=== PATIENT | male | born 2000 | race Caucasian/White ===

== ENCOUNTER 2021-05-31 20:08 | Emergency (ER) | payer MEDICAID ==
[2021-05-31] MEDS ORDERED: Sodium Chloride 0.9% 1,000 ML IV SCH (20:45)
--- NOTE | 2021-05-31 20:54 | EDM.PDOC ---
ED HPI GENERAL MEDICAL PROBLEM - General Chief Complaint: Abdominal Pain Stated Complaint: ABDOMINAL PAIN Time Seen by Provider: 05/31/21 20:20 Source of Information: Reports: Patient, Family (Grandmother) History Limitations: Reports: No Limitations - History of Present Illness INITIAL COMMENTS - FREE TEXT/NARRATIVE: Reji is a very pleasant 20-year-old man who now presents the ED stating that he has had crampy left upper quadrant abdominal pain on and off for the past 2.5 weeks. The pain is absent if he remains still, but develops with activity, eating, or lying on his left side. He reports having slight nausea, and states that he vomited once, but he has not had any fever, chills, or urinary symptoms. He reports having alternating constipation versus soft bowel movements, but denies having watery diarrhea or bloody bowel movements. No prior similar symptoms. The patient states that he was seen by a local doctor about 1 week ago, who recommended that he take a stool softener and drink a fiber solution. The patient states he did that and that his symptoms have improved somewhat, but not resolved. He was then seen at the [facility] walk[facility] today, where a CBC, CMP, lipase level, urinalysis, and abdominal flatplate x-ray were performed. His blood work and urinalysis were unremarkable, while the x-ray demonstrated a nonspecific bowel gas pattern with air throughout the colon. He was then sent here to undergo a CT of the abdomen and pelvis. Here in the ED, the patient is found to be hemodynamically stable, afebrile, saturating 95% on room air. He appears to be comfortable, in no acute distress. Prior to 2.5 weeks ago, the patient denies having a recent fever, chills, sore throat, ear pain, nasal or sinus congestion, cough, dyspnea, chest pain, palpitations, nausea, vomiting, constipation, diarrhea, abdominal pain, urinary symptoms, recent weight gain or weight loss, recent bloody bowel movements or black bowel movements, recent joint aches, headaches, or rashes. The patient does not have a PCP. He resides in [place], [place]. He has not received a COVID vaccination. Upper Abdomen Pain Score (Numeric/FACES): 3 - Related Data Allergies Allergy/AdvReac Type Severity Reaction Status Date / Time No Known Allergies Allergy Verified 07/21/21 20:23 Home Meds: Home Meds . [No Known Home Meds] 05/31/21 [History] Past Medical History - Past Health History Medical/Surgical History: Denies Medical/Surgical History Social & Family History - Tobacco Use Tobacco Use Status *Q: Never Tobacco User Second Hand Smoke Exposure: No - Alcohol Use Alcohol Use History: No - Recreational Drug Use Recreational Drug Use: Yes Drug Use in Last 12 Months: Yes Recreational Drug Type: Reports: Marijuana/Hashish (smokes 3-4x/day) - Living Situation & Occupation Living situation: Reports: Single, with Family (Grandmother) Occupation: Employed ([employer]) ED ROS GENERAL - Review of Systems Review Of Systems: Comprehensive ROS is negative, except as noted in HPI. ED EXAM, GI/ABD - Physical Exam Exam: See Below Exam Limited By: No Limitations General Appearance: Alert, WD/WN, No Apparent Distress Eyes: Bilateral: Normal Appearance, EOMI Ears: Normal External Exam, Hearing Grossly Normal Nose: Normal Inspection Throat/Mouth: Normal Inspection, Normal Lips, Normal Voice, No Airway Compromise Head: Atraumatic, Normocephalic Neck: Normal Inspection, Full Range of Motion Respiratory/Chest: No Respiratory Distress, Lungs Clear, Normal Breath Sounds, No Accessory Muscle Use Cardiovascular: Normal Peripheral Pulses, Regular Rate, Rhythm, No Edema, No Gallop, No JVD, No Murmur, No Rub GI/Abdominal Exam: Normal Bowel Sounds, Soft, No Organomegaly, No Distention, No Abnormal Bruit, No Mass, Tender (Left upper quadrant only. Nontender elsewhere.) Back Exam: Normal Inspection, Full Range of Motion, NT Extremities: Normal Inspection, Normal Range of Motion, No Pedal Edema, Normal Capillary Refill Neurological: Alert, Oriented, Normal Cognition, No Motor/Sensory Deficits Psychiatric: Normal Affect Skin Exam: Warm, Dry, Intact, Normal Color, No Rash Course - Vital Signs Last Recorded V/S: Last Vital Signs Temp 36.2 C 05/31/21 20: Pulse 85 05/31/21 20:21 Resp 16 05/31/21 20:21 BP 139/74 05/31/21 20:21 Pulse Ox 95 05/31/21 20:21 - Orders/Labs/Meds Orders: Active Orders 24 hr Category Date Time Status Abdomen Pelvis w Cont [CT] Stat Exams 05/31/21 20:39 Taken Meds: Medications Discontinued Medications Generic Name Dose Route Start Last Admin Trade Name Alexa PRN Reason Stop Dose Admin Diatrizoate Meglum/Diatrizoate Sod 90 ml 05/31/21 21:46 05/31/21 22:05 Diatrizoate Meglumine/Diatrizoate Sodium 37% 120 Ml Bottle PO 05/31/21 21:47 90 ml ONETIME ONE Administration Sodium Chloride 1,000 mls @ 150 mls/hr 05/31/21 20:45 05/31/21 20:48 Normal Saline IV 150 mls/hr ASDIRECTED JUAN LUIS Administration Iopamidol 100 ml 05/31/21 21:46 05/31/21 22:04 Iopamidol 612 Mg/Ml 100 Ml Bottle IVPUSH 05/31/21 21:47 100 ml ONETIME ONE Administration - Re-Assessments/Exams Free Text/Narrative Re-Assessment/Exam: 05/31/21 20:41 As above, the patient has been experiencing crampy left upper quadrant abdominal pain on and off for the past 2.5 weeks, associated with alternating constipation versus loose stools, although no actual watery diarrhea or bloody bowel movements. He has had slight nausea, and vomited once. No other constitutional symptoms. He was seen at the walk-in clinic today, where a CBC, CMP, lipase level, and urinalysis were all unremarkable. A flatplate x-ray of the abdomen demonstrated a nonspecific bowel gas pattern with air throughout the colon. He was sent here for a CT of the abdomen and pelvis. On examination, he has tenderness to his left upper quadrant, although his abdomen is soft with normoactive bowel sounds. I have ordered a CT of the abdomen and pelvis with oral and IV contrast, along with some IV fluid. 06/01/21 02:01 Notified that there has been a delay in the reading of the CT images, as they were not able to be pushed when we had an unscheduled downtime late last night/early this morning. The images have since been pushed, and we are waiting for the Radiologist's interpretation. 06/01/21 02:54 CT of the abdomen and pelvis with oral and IV contrast is read by [facility] as "No acute findings in the abdomen or pelvis." 06/01/21 02:57 CT results discussed with the patient (his grandmother is no longer present). As above, the blood work performed at the walk-in clinic was unremarkable, and his CT scan is unremarkable. His left upper quadrant abdominal discomfort is most likely due to some constipation. I recommended that he take some [id number] enemas to clean himself up, then, in the future, increase the f iber in his diet, along with plenty of fluids. Departure - Departure Time of Disposition: 02:58 Disposition: Home, Self-Care 01 Condition: Good Clinical Impression: Left upper quadrant abdominal pain - Discharge Information *PRESCRIPTION DRUG MONITORING PROGRAM REVIEWED*: Not Applicable *COPY OF PRESCRIPTION DRUG MONITORING REPORT IN PATIENT CECILIA: Not Applicable Instructions: Abdominal Pain, Adult, [id number] Referrals: PCP,Butch [Primary Care Provider] - Krista Ibrahim NP [Nurse Practitioner] - Forms: ED Department Discharge Additional Instructions: You were seen in the emergency room after experiencing upper left abdominal pain on and off for the past 2.5 weeks, associated with some nausea and vomiting, and alternating constipation with soft bowel movements. The blood work at the walk-in clinic was unremarkable, with no suggestion of an infection. Work-up in the ER included a CT of your abdomen and pelvis, which was also unremarkable, with no suggestion of inflammation or an infection. Based on your history, physical exam, and ER tests, the cause of your symptoms is most likely due to constipation. As discussed, we recommend that you utilize some outpatient enemas. I recommendation would be a saline enema, followed by a mineral oil enema. Once you have cleaned yourself out, we recommend that you increase the fiber in your diet, along with plenty of fluid. This can be performed by taking Metamucil, but vegetables, such as cauliflower, broccoli, and carrots is excellent, as well. If your symptoms persist despite taking enemas, please follow-up with Krista Ibrahim NP, or one of the other providers in the clinic, for further evaluation. If any other problems, please do not hesitate to return to the ER. Sepsis Event Note (ED) - Evaluation Sepsis Screening Result: No Definite Risk - Focused Exam Vital Signs: Vital Signs Temp Pulse Resp BP Pulse Ox 05/31/21 20:21 36.2 C 85 16 139/74 95 - My Orders Last 24 Hours: My Active Orders 05/31/21 20:39 Abdomen Pelvis w Cont [CT] Stat - Assessment/Plan Last 24 Hours: My Active Orders 05/31/21 20:39 Abdomen Pelvis w Cont [CT] Stat
[2021-05-31] MEDS ORDERED: Diatrizoate Meglumine/Diatrizoate Sodium 37% 120 ML Bottle PO ONE (21:46)
[2021-05-31] MEDS ORDERED: Iopamidol 612 MG/ML 100 ML Bottle IVPUSH ONE (21:46)
--- NOTE | 2021-06-01 07:50 | CT ---
CT abdomen and pelvis Technique: Multiple axial sections were obtained from above the dome of the diaphragm inferiorly through the pubic symphysis. Intravenous and oral contrast were utilized. Delayed images were obtained through the bladder. Reconstructed coronal and sagittal images were obtained. Comparison: No prior abdominal imaging is available. Findings: Visualized lung bases show nothing acute. Liver contains no focal parenchymal abnormality. Spleen appears within normal limits. Adrenal glands show no nodule. Pancreas is within normal limits. Gallbladder contains no calcified gallstones. Kidneys show symmetric contrast enhancement with no hydronephrosis or mass being seen. Abdominal aorta shows no aneurysm. No retroperitoneal adenopathy or mesenteric abnormalities are seen. Appendix is seen which is normal. No pelvic mass or adenopathy is seen. No free fluid or inflammatory change is seen. Delayed images show contrast within the distal ureters as well as contrast within the bladder. No discrete bowel abnormality is appreciated. Bone window settings were reviewed which show no acute osseous abnormality. Bilateral spondylolytic defects are noted at L5-S1. No significant spondylolisthesis is seen. Impression: 1. 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 2. Nothing acute is identified on CT study of the abdomen and pelvis. Diagnostic code #2 I agree with preliminary report from [facility], finalized on 06/01/21, 3:55 AM CDT, code 1
== END 2021-06-01 03:15 | disposition home or self-care (01) ==
LOC: JD.ED 20:08
DX: R10.12 Left upper quadrant pain (principal)
CPT/HCPCS: 74177; 99284; J7030; Q9963; Q9967